=== PATIENT | male | born 1970 | race Caucasian/White ===

== ENCOUNTER → 2017-04-25 | Outpatient (CLI) | payer BC ==
--- NOTE | 2017-04-26 06:15 | REP ---
Clinical: Abnormal liver function tests. Technique: Real time serna scale ultrasound examination using curved array transducer. Findings: Liver is increased echogenicity with poor through transmission and consistent with fatty infiltration. No focal hepatic lesions are identified. Gallbladder demonstrates 4 mm polyp and is otherwise without gallstones, wall thickening or pericholecystic fluid. No biliary ductal dilatation is appreciated and the common bile duct measures 4.3 mm diameter. The pancreas is unremarkable. The right kidney measures 12.3 x 7.8 x 6.9 cm with 3.6 cm lower pole cyst and no evidence for hydronephrosis. No ascites. Impression: Fatty infiltration to the liver. 4 mm gallbladder polyp. 3.6 cm lower pole renal cyst. Signed by David Horne MD 04/26/2017 06:08 A
== END ==
LOC: M RAD 06:43
PROVIDERS: ATTEND Nurse Practitioner Family
DX: K76.0 Fatty (change of) liver, not elsewhere classified (principal); K82.4 Cholesterolosis of gallbladder; N28.1 Cyst of kidney, acquired

== ENCOUNTER 2019-03-03 08:13 | Day surgery (SDC) | payer BC ==
[~2019-03-03] VITALS: Ht 177.8 cm; Wt 131.1 kg
[~2019-03-03 08:13] MED LIST: ALLO10TA PO; AMLO10TA5 PO; ASPI81TA26 PO; CYMB60CA3 PO; HYDR25TAB PO; LISI40TA PO; METF850T4 PO; OMEP40CA2 PO; PROPOFOL 200 MG/20 ML VIAL As Ordered ONE
[2019-03-03] MEDS ORDERED: NS 1,000 ML IV ONE (09:00)
[2019-03-03] MEDS ORDERED: PROPOFOL 200 MG/20 ML VIAL As Ordered ONE (10:00)
--- NOTE | 2019-03-03 10:17 | ROOR ---
Patient Name: Arie Roy Procedure Date: 03/03/2019 9:32 AM Date of : 1970 Age: 48 Room: [facility] [place] Gender: Male Note Status: Finalized Procedure: Colonoscopy Indications: Screening for colorectal malignant neoplasm Providers: Alfredo Gillis MD Referring MD: YESIKA CARR MD Requesting Provider: Medicines: Monitored Anesthesia Care Complications: No immediate complications. Procedure: Pre-Anesthesia Assessment: - Prior to the procedure, a History and Physical was performed, and patient medications and allergies were reviewed. The patient is competent. The risks and benefits of the procedure and the sedation options and risks were discussed with the patient. All questions were answered and informed consent was obtained. Patient identification and proposed procedure were verified by the physician, the nurse and the anesthesiologist in the procedure room. Mental Status Examination: alert and oriented. Airway Examination: normal oropharyngeal airway and neck mobility. Respiratory Examination: clear to auscultation. CV Examination: normal. Prophylactic Antibiotics: The patient does not require prophylactic antibiotics. Prior Anticoagulants: The patient has taken no previous anticoagulant or antiplatelet agents. ASA Grade Assessment: III - A patient with severe systemic disease. After reviewing the risks and benefits, the patient was deemed in satisfactory condition to undergo the procedure. The anesthesia plan was to use monitored anesthesia care (MAC). Immediately prior to administration of medications, the patient was re-assessed for adequacy to receive sedatives. The heart rate, respiratory rate, oxygen saturations, blood pressure, adequacy of pulmonary ventilation, and response to care were monitored throughout the procedure. The physical status of the patient was re-assessed after the procedure. The Colonoscope was introduced through the anus and advanced to the terminal ileum, with identification of the appendiceal orifice and IC valve. The colonoscopy was performed without difficulty. The patient tolerated the procedure well. The quality of the bowel preparation was good. The terminal ileum, ileocecal valve, appendiceal orifice, and rectum were photographed. Scope insertion time was 4 minutes. Scope withdrawal time was 8 minutes. The total duration of the procedure was 12 minutes. Findings: The perianal and digital rectal examinations were normal. The terminal ileum appeared normal. A 3 mm polyp was found in the ascending colon. The polyp was sessile. The polyp was removed with a cold snare. Resection and retrieval were complete. Verification of patient identification for the specimen was done by the physician and nurse using the patient's name, date and medical record number. Estimated blood loss was minimal. Multiple small-mouthed diverticula were found in the sigmoid colon. There was no evidence of diverticular bleeding. Non-bleeding external and internal hemorrhoids were found during retroflexion. The hemorrhoids were large. Impression: - The examined portion of the ileum was normal. - One 3 mm polyp in the ascending colon, removed with a cold snare. Resected and retrieved. - Mild diverticulosis in the sigmoid colon. There was no evidence of diverticular bleeding. - Non-bleeding external and internal hemorrhoids. Recommendation: - Patient has a contact number available for emergencies. The signs and symptoms of potential delayed complications were discussed with the patient. Return to normal activities tomorrow. Written discharge instructions were provided to the patient. - High fiber diet. - Continue present medications. - Await pathology results. - Repeat colonoscopy in 5-10 years for surveillance based on pathology results. - Based on the biopsy results you will receive a phone call from GI clinic in 2-3 weeks to review the pathology results AND/OR your results will be faxed to your Primary care physician. - Return to primary care physician. Alfredo Gillis MD Alfredo Gillis MD 03/03/2019 10:17:37 AM Electronically signed by Alfredo Gillis MD Number of Addenda: 0 Note Initiated On: 03/03/2019 9:32 AM Estimated Blood Loss: Estimated blood loss was minimal.
[2019-03-03 10:37] VITALS: BP 123/75
== END 2019-03-03 11:00 | disposition home or self-care (01) ==
LOC: M OPP 08:13
PROVIDERS: ATTEND Internal Medicine Gastroenterology
DX: D12.2 Benign neoplasm of ascending colon (principal); K57.30 Diverticulosis of large intestine without perforation or abscess without bleeding; K64.8 Other hemorrhoids; Z12.11 Encounter for screening for malignant neoplasm of colon